=== PATIENT | male | born 1955 | race Caucasian/White ===

== ENCOUNTER 2019-03-23 21:04 | Inpatient (IN) ==
[2019-03-23 21:41] LABS: BASO# 0.04 X1000 (0.0-0.2); BASO% 0.2 % (0.0-0.8); EOS# 0.24 X1000 (0.0-0.7); EOS% 1.1 % (0.0-10.0); HEMATOCRIT 38.4 % (42.0-52.0); HEMOGLOBIN 11.6 g/dL (14.0-18.0); IMM GRAN# 0.21 X1000 (0.0-0.04); IMM GRAN% 0.9 % (0.0-0.5); LYMPH# 0.79 X1000 (1.2-3.4); LYMPH% 3.5 % (20.5-51.1); MCH 28.3 PG (27-31); MCHC 30.2 g/dL (33-37); MCV 93.7 FL (81-99); MONO# 0.92 X1000 (0.11-0.59); MONO% 4.1 % (1.7-9.3); MPV 9.4 FL (7.4-10.4); NEUT# 20.15 X1000 (1.4-6.5); NEUT% 90.2 % (42.2-75.2); PLT 419 X1000 (130-400); WBC 22.35 X1000 (4.8-10.8)
--- NOTE | 2019-03-23 21:42 | Diag Imaging Result Doc PS360 ---
EXAM: CHEST-1 VIEW INDICATION: sob TECHNIQUE: One view COMPARISON: None. FINDINGS: Inspiration is slightly suboptimal. There are vague interstitial and airspace infiltrates bilaterally. Consider pulmonary edema +/- pneumonia. There is more dense infiltrate at the right lung base. There may also be a component of right basilar atelectasis. There is no discrete pleural fluid collection or pneumothorax. The cardiac silhouette is unremarkable. IMPRESSION: Bilateral vague infiltrates seen throughout both lungs, most significant at the right lung base. Electronically signed by Kaushal Reno 03/23/2019 9:40 PM
[2019-03-23 21:46] LABS: INR 1.2; PROTIME 15.3 Seconds (11.0-16.0)
[2019-03-23 21:47] LABS: PTT 38.1 Seconds (22.3-41.8)
[2019-03-23 21:52] LABS: BANDS 1 % (0-1); LYMPHS 2 % (21-51); SEGS 96 % (42-75)
[2019-03-23 22:03] LABS: AGAP 13; ALB/GLOB RATIO 0.9; ALBUMIN 2.8 g/dL (3.5-5.0); ALKALINE PHOSPHATASE 82 U/L (32-122); BUN 14 mg/dL (8-22); CALCIUM 8.9 mg/dL (8.8-10.2); CHLORIDE 99 mmol/L (98-107); CK PROFILE 852 U/L (24-204); COSMO 278; CREATININE 0.7 mg/dL (0.7-1.2); ESTIMATED GFR > 60; GLUCOSE 138 mg/dL (70-104); GOT 98 U/L (10-34); GPT 112 U/L (10-44); MAGNESIUM 1.9 mg/dL (1.5-2.7); SODIUM 138 mmol/L (136-145); TCO2 26 mmol/L (25-35); TOTAL BILIRUBIN 0.19 mg/dL (0.20-1.00); TOTAL PROTEIN 5.8 g/dL (6.3-8.3)
[2019-03-23 22:19] LABS: CK INDEX 2.8 (0.0-2.5)
[2019-03-23] MEDS ORDERED: ZOSYN 3.375 GM in NS 50 ML IV ONE (22:27)
[2019-03-23] MEDS ORDERED: VANCOMYCIN 1 GM/NS 1 GM/250 ML IVPB IV ONE (22:27)
[2019-03-23] MEDS ORDERED: NS 1,000 ML IV ONE (22:27)
[2019-03-24] MEDS ORDERED: ASPIRIN PO ONE (00:02)
[2019-03-24] MEDS ORDERED: ZOFRAN IV PRN (01:30)
[2019-03-24] MEDS ORDERED: VANCOMYCIN IV PER PHARMACY MISC SCH (01:30)
[2019-03-24] MEDS ORDERED: TYLENOL PO PRN (01:30)
--- NOTE | 2019-03-24 03:14 | HISTORY AND PHYSICAL ---
PRIMARY CARE PHYSICIAN: Dr. Enciso. CHIEF COMPLAINT: Fever, shortness of breath, weakness. HISTORY OF PRESENTING ILLNESS: A 63-year-old male with a history of pulmonary embolism, interstitial lung disease and diabetes mellitus type 2, who presented to the emergency department with several days history of worsening weakness. The patient apparently states that he was also running fevers for several days. The patient was also complaining of worsening shortness of breath. The patient did have a pulmonary embolism earlier in the summer and was treated with tPA and apparently he states that his imaging after tPA did not reveal any emboli. Patient was seen in the ED, was in some mild respiratory distress and subsequently he will require admission for further evaluation and management. At time of my examination, patient denied any nausea, vomiting, diarrhea, chest pain, hemoptysis, but complained of weakness, fever and shortness of breath. PAST MEDICAL HISTORY: Includes pulmonary embolism, interstitial lung disease, diabetes mellitus type 2. PAST SURGICAL HISTORY: Back surgery, right shoulder surgery. ALLERGIES: Sulfur. CURRENT MEDICATIONS: Include Eliquis 5 mg p.o. b.i.d., Jardiance 10 mg p.o. daily, glimepiride 1 mg p.o. daily, insulin lispro 5 units as directed, metformin 1000 mg p.o. at bedtime, CellCept 500 mg p.o. b.i.d., prednisone 30 mg p.o. b.i.d., Zanaflex 4 mg p.o. at bedtime. SOCIAL HISTORY: No history of smoking, alcohol or illicit drug use. FAMILY HISTORY: No history of coronary artery disease. REVIEW OF SYSTEMS: Fourteen point review of systems listed as in HPI. Other systems negative. PHYSICAL EXAMINATION: GENERAL: Cooperative, friendly male. He is resting more comfortably now. VITAL SIGNS: Temperature 98.8 degrees, pulse 133, respirations 20, blood pressure 106/65. He is saturating 88%. HEENT: Atraumatic, normocephalic. Extraocular movements intact. PERRLA. NECK: No masses. CHEST: Rhonchi. CARDIOVASCULAR: Regular rate and rhythm. ABDOMEN: Soft. Positive bowel sounds. EXTREMITIES: No edema. NEUROLOGIC: He is awake, alert, oriented x3. GENITOURINARY: No bladder distention. SKIN: Warm. LABORATORIES AND STUDIES: WBC 22.35, hemoglobin is 11.6, hematocrit 38.4, platelets 419,000. Sodium 138, potassium 4.0, chloride 99, CO2 is 26, BUN is 13, creatinine 0.7, glucose is 138. Troponin 0.452, plasma lactate 1.4. Chest x-ray shows bilateral vague infiltrates throughout both lungs. ASSESSMENT: A 63-year-old male with a history of pulmonary embolism status post TPA, interstitial lung disease and diabetes mellitus type 2, who had presented to the emergency department with a several days history of worsening weakness, shortness of breath and fever. He was evaluated in the emergency department. He had imaging done which did raise the possibility of pneumonia. Subsequently, he will require admission for further management. 1. Suspected pneumonia. 2. Interstitial lung disease. 3. Elevated troponin. 4. Pulmonary embolism, on anticoagulation. 5. Diabetes mellitus type 2. PLAN: 1. We will admit patient to [facility]. 2. We will check blood cultures. Start patient on IV antibiotics. 3. We will consult with dental assistant instructor. 4. We will trend troponins and consult Cardiology. 5. We will continue with his anticoagulation. 6. We will monitor blood glucose and put patient on sliding scale insulin regimen. 7. Patient is on Eliquis and that will suffice for DVT prophylaxis. 8. We will continue to follow, and reassess and make further recommendation based on patient's clinical course. cc: Stephen Ruiz MD MTDAbi
[2019-03-24 03:48] LABS: URINE SOURCE CLEAN CATCH
[2019-03-24 03:51] LABS: BILIRUBIN URINE NEGATIVE (NEGATIVE); BLOOD URINE MODERATE (NEGATIVE); COLOR YELLOW; GLUCOSE URINE >1000 mg/dL (NEGATIVE); KETONE URINE NEGATIVE (NEGATIVE); LEUKOCYTES URINE NEGATIVE (NEGATIVE); NITRITE URINE NEGATIVE (NEGATIVE); PH URINE 6.5; PROTEIN URINE 70 mg/dL (NEGATIVE); TURBIDITY URINE CLEAR (CLEAR); UROBILINOGEN URINE NORMAL (NORMAL)
[2019-03-24 03:53] LABS: UR EPITHELIAL CELLS <10 /HPF (<10); URINE BACTERIA NEGATIVE /HPF; URINE RBC <10 /HPF (<10); URINE WBC <10 /HPF (<10)
[2019-03-24 04:22] LABS: SP GRAVITY URINE 1.015
[2019-03-24] MEDS ORDERED: VANCOMYCIN 1 GM/NS 1 GM/250 ML IVPB IV ONE (04:45)
[2019-03-24] MEDS: MYCOSTATIN SUSP PO SCH ×5 (05:54→21:07)
[2019-03-24] MEDS: HUMULIN R SUBQ SCH ×4 (07:00→21:55)
[2019-03-24] MEDS: ZOSYN 3.375 GM in NS 50 ML IV SCH ×3 (07:33→21:07)
[2019-03-24 07:35] LABS: BASO# 0.03 X1000 (0.0-0.2); BASO% 0.1 % (0.0-0.8); EOS# 0.34 X1000 (0.0-0.7); EOS% 1.6 % (0.0-10.0); HEMATOCRIT 35.8 % (42.0-52.0); HEMOGLOBIN 10.7 g/dL (14.0-18.0); IMM GRAN# 0.18 X1000 (0.0-0.04); IMM GRAN% 0.9 % (0.0-0.5); LYMPH# 0.62 X1000 (1.2-3.4); MCH 28.4 PG (27-31); MCHC 29.9 g/dL (33-37); MONO# 0.89 X1000 (0.11-0.59); MONO% 4.3 % (1.7-9.3); MPV 9.9 FL (7.4-10.4); NEUT% 90.1 % (42.2-75.2); PLT 370 X1000 (130-400); RBC 3.77 XMIL (4.7-6.1); RDW 16.1 % (11.5-14.5); WBC 20.86 X1000 (4.8-10.8)
--- NOTE | 2019-03-24 07:48 | Diag Imaging Result Doc PS360 ---
CT ANGIOGRM PULMONARY ARTERIES - 03/23/2019 INDICATION: shortness of breath TECHNIQUE: Axial CT images were obtained after administering intravenous contrast. Coronal MIP images were generated. COMPARISON: None FINDINGS: There is no pulmonary embolus and. Heart size is top normal. There is a small pericardial effusion. There are diffuse shotty mediastinal lymph nodes but no focal lymphadenopathy. Upper abdominal images are unremarkable. There are extensive fibrotic changes bilaterally, worst in the posterior costophrenic angles bilaterally. There are some trace hazy infiltrates in the upper lobes bilaterally as well. There are moderate degenerative changes of the spine. No acute or suspicious bony lesion. IMPRESSION: Negative for pulmonary embolism. Advanced pulmonary fibrosis. Hazy interstitial infiltrates mainly in the upper lobes are nonspecific, this could represent pneumonia or inflammatory changes relating to the fibrosis. This exam was performed using automated exposure control, adjustment of mA or kV according to patient size, and/or use of iterative reconstruction technique Electronically signed by Sixto Pacheco 03/24/2019 7:45 AM
[2019-03-24 07:49] LABS: AGAP 13; BUN 12 mg/dL (8-22); CALCIUM 8.4 mg/dL (8.8-10.2); CHLORIDE 100 mmol/L (98-107); COSMO 275; CREATININE 0.6 mg/dL (0.7-1.2); ESTIMATED GFR > 60; GLUCOSE 99 mg/dL (70-104); MAGNESIUM 1.9 mg/dL (1.5-2.7); POTASSIUM 3.8 mmol/L (3.5-5.1); SODIUM 138 mmol/L (136-145); TCO2 25 mmol/L (25-35)
--- NOTE | 2019-03-24 07:51 | EKG Report ---
Test Performed on : 03/23/2019 9:37:09 PM Test Reason : ED. NO EKG ORDER FOR MUSE Blood Pressure : / mmHG Vent. Rate : 111 BPM Atrial Rate : 111 BPM P-R Int : 182 ms QRS Dur : 078 ms QT Int : 320 ms P-R-T Axes : 044 -09 022 degrees QTc Int : 435 ms Sinus tachycardia. Possible Left atrial enlargement Possible Inferior infarct , age undetermined Cannot rule out Anterior infarct , age undetermined Abnormal ECG No previous ECGs available Unconfirmed Result
--- NOTE | 2019-03-24 07:51 | EKG Report ---
Test Performed on : 03/24/2019 00:38:39 AM Test Reason : ED. NO EKG ORDER FOR MUSE Blood Pressure : / mmHG Vent. Rate : 096 BPM Atrial Rate : 096 BPM P-R Int : 200 ms QRS Dur : 082 ms QT Int : 364 ms P-R-T Axes : 051 -12 024 degrees QTc Int : 459 ms Normal sinus rhythm. Low voltage QRS Borderline ECG When compared with ECG of 23-MAR-2019 21:37, (Unconfirmed) No significant change was found Unconfirmed Result
--- NOTE | 2019-03-24 09:38 | EKG Report ---
Test Performed on : 03/24/2019 09:08:29 AM Test Reason : chest pain Blood Pressure : / mmHG Vent. Rate : 096 BPM Atrial Rate : 096 BPM P-R Int : 188 ms QRS Dur : 084 ms QT Int : 356 ms P-R-T Axes : 045 -15 018 degrees QTc Int : 449 ms Normal sinus rhythm. Normal ECG When compared with ECG of 24-MAR-2019 00:38, (Unconfirmed) No significant change was found Confirmed by Marisol MARTINEZ, Scout ([id number]) on 03/25/2019 11:35:12 AM
[2019-03-24] MEDS ORDERED: GLUCOPHAGE PO SCH ×2 (10:15→21:00)
[2019-03-24] MEDS ORDERED: MYCOSTATIN SUSP PO SCH (10:15)
[2019-03-24] MEDS ORDERED: GLIMEPIRIDE 1 MG PO SCH (10:15)
[2019-03-24] MEDS ORDERED: PREDNISONE PO SCH (10:15)
[2019-03-24] MEDS ORDERED: DIFLUCAN PO SCH (10:15)
[2019-03-24 10:43] LABS: CK INDEX 3.2 (0.0-2.5); CK-MB 23.37 ng/mL (0.0-5.0)
[2019-03-24] MEDS ORDERED: SOLU-MEDROL IV SCH (11:15)
[2019-03-24] MEDS: ELIQUIS PO SCH ×2 (11:22→21:07)
[2019-03-24] MEDS: NON-FORMULARY MED (Empagliflozin [Jardiance] 10 MG) PO SCH (11:22)
[2019-03-24] MEDS: DIFLUCAN 100 MG/NS 100 MG/50 ML IVPB IV SCH (13:02)
[2019-03-24] MEDS: VANCOMYCIN 1,900 MG in NS 500 ML IV SCH (14:37)
--- NOTE | 2019-03-24 15:16 | ECHO REPORT ---
ORDER DATE: 03/24/2019 INTERPRETING PHYSICIAN: Dr. Steve Stephenson ECHOCARDIOGRAPHIC MEASUREMENTS: 1. Interventricular septum: 1.0 cm. 2. Posterior wall: 0.8 cm. 3. Diastolic diameter: 5.1 cm. 4. Left atrium: 3.2 cm. 5. Aortic root: 4.5 cm. SUMMARY OF THE 2-DIMENSIONAL IMAGIN. Ascending aorta was mildly dilated. 2. Aortic valve leaflets were trileaflet. 3. Mitral valve was normal. 4. Tricuspid valve was normal. 5. Pulmonic valve was normal. 6. Normal left ventricular cavity size. Estimated ejection fraction of 60 to 65 percent. There is no aortic stenosis or regurgitation. 7. There is mild mitral regurgitation. 8. Mild tricuspid regurgitation. Peak velocity across the tricuspid valve was 2.2 m/sec 9. Trace posterior echo-free space suggestive of small pericardial effusion noted. There is no obvious sign of tamponade. There is no obvious intracardiac mass or thrombus seen. cc: MD Stephen Ramirez MD
[2019-03-24] MEDS ORDERED: CLINIMIX E 4.25%-5% SOLUTION 1,000 ML IV SCH (15:45)
[2019-03-24] MEDS: SOLU-MEDROL IV SCH (21:07)
[2019-03-25] MEDS: ZOSYN 3.375 GM in NS 50 ML IV SCH ×4 (01:03→22:24)
[2019-03-25] MEDS: VANCOMYCIN 1,900 MG in NS 500 ML IV SCH ×2 (01:03→13:31)
[2019-03-25] MEDS: SOLU-MEDROL IV SCH ×3 (04:07→19:47)
[2019-03-25] MEDS: HUMULIN R SUBQ SCH ×4 (06:14→20:37)
--- NOTE | 2019-03-25 06:43 | EKG Report ---
Test Performed on : 03/25/2019 06:02:06 AM Test Reason : pericarditis/elevated troponins Blood Pressure : / mmHG Vent. Rate : 086 BPM Atrial Rate : 086 BPM P-R Int : 248 ms QRS Dur : 084 ms QT Int : 390 ms P-R-T Axes : 047 -04 029 degrees QTc Int : 466 ms Sinus rhythm. with 1st degree AV block. Low voltage QRS Borderline ECG When compared with ECG of 24-MAR-2019 09:08, (Unconfirmed) SD interval has increased Confirmed by Marisol MARTINEZ, Scout ([id number]) on 03/25/2019 11:40:21 AM
[2019-03-25 06:45] LABS: AGAP 10; BUN 16 mg/dL (8-22); CALCIUM 8.9 mg/dL (8.8-10.2); CHLORIDE 102 mmol/L (98-107); CK INDEX 3.4 (0.0-2.5); CK-MB 21.86 ng/mL (0.0-5.0); COSMO 283; CREATININE 0.6 mg/dL (0.7-1.2); ESTIMATED GFR > 60; GLUCOSE 170 mg/dL (70-104); POTASSIUM 4.6 mmol/L (3.5-5.1); SODIUM 139 mmol/L (136-145); TCO2 27 mmol/L (25-35)
[2019-03-25 06:46] LABS: BASO# 0.01 X1000 (0.0-0.2); HEMOGLOBIN 11.2 g/dL (14.0-18.0); IMM GRAN# 0.18 X1000 (0.0-0.04); IMM GRAN% 0.9 % (0.0-0.5); LYMPH# 0.59 X1000 (1.2-3.4); LYMPH% 2.9 % (20.5-51.1); MCH 27.9 PG (27-31); MCHC 29.5 g/dL (33-37); MCV 94.8 FL (81-99); MONO# 0.57 X1000 (0.11-0.59); MONO% 2.8 % (1.7-9.3); MPV 9.6 FL (7.4-10.4); NEUT# 18.83 X1000 (1.4-6.5); NEUT% 93.4 % (42.2-75.2); PLT 431 X1000 (130-400); RBC 4.01 XMIL (4.7-6.1); RDW 15.8 % (11.5-14.5); WBC 20.18 X1000 (4.8-10.8)
[2019-03-25 07:08] LABS: ANISOCYTOSIS 1+; BANDS 2 % (0-1); LYMPHS 3 % (21-51); MONO 2 % (1-9); SEGS 92 % (42-75)
--- NOTE | 2019-03-25 07:29 | CONSULTATION ---
DATE OF CONSULTATION: 03/24/2019 HISTORY OF PRESENT ILLNESS: Mr. Grijalva is 63 years old and he reports diffuse weakness. History from the patient is that he did not notice any significant weakness until about 6 months ago. He reports developing sudden shortness of breath and eventual diagnosis of pulmonary embolus. He had extensive workup and believes that autoimmune disease was the final diagnosis. He reports being weak all over without focal features. He had trouble raising his arms and legs. He did not fall. There was no loss of bowel or bladder control. Initially, there was not dysarthria or trouble chewing and swallowing. There was no ptosis, facial asymmetry, diplopia. He reports he was treated with prednisone 60 mg daily and strength improved remarkably. Soon, blood sugar was elevated. He reports CellCept was added and he almost immediately began to notice nausea, shortness of breath, increased weakness, loss of appetite and weight loss. Prednisone dose was tapered to 5 mg daily while he was taking CellCept. CellCept was stopped about a month ago and prednisone was continued 5 mg daily, by his report. He continued to feel weak, mostly generalized weakness. He had trouble getting up steps, trouble getting up from a chair, trouble getting up off the commode, trouble using his arms at shoulder height or higher. He began to notice occasional sharp pain in the jaw muscles associated with chewing. He does not report benjamin dysarthria or dysphagia. There was still no facial motility deficit. He presented to the hospital today with increasing weakness and shortness of breath. He reports receiving a dose of prednisone 60 mg several hours ago and he believes he can already tell significant improvement in strength following that dose. Prior to this, he would have occasional numbness and tingling in the feet. He reports being "borderline" for diabetes mellitus prior to recent events. While taking prednisone, blood sugar became elevated. SOCIAL HISTORY: He does not smoke cigarettes. He denies ethanol use. He denies illicit drug use. FAMILY HISTORY: He does not know any family history of autoimmune problem or neuromuscular disease. There is family history of diabetes mellitus and peripheral neuropathy. LABORATORY DATA: Lab work here shows WBC count 22,000 and then 20,000. CK was 852 and then 735. Sedimentation rate was 80 and then 83. He has been afebrile here. REVIEW OF SYSTEMS: He reports purposeful weight loss with dieting from 240 pounds down to 220 pounds over a month or 2 approximately a year ago. Weight continued to decline very slowly over the next several months, eventually as low as 182 pounds. During that time, he had improved strength and was able to participate with rehab, he reports his weight increased to 200 pounds. In the last month or so, he reports weight loss down to 185 pounds. He weighed 191 pounds on presentation today. PHYSICAL EXAMINATION: On exam, Mr. Grijalva is awake, alert, attentive, appropriate. Speech is not dysarthric. Language function is intact. Memory is good. Head and neck are unremarkable. Visual perera are full. Extraocular movements are full. There is no ptosis. Facial motility is good bilaterally. Gag is intact. Tongue is midline. He has some discomfort with aggressive motor testing around the shoulder girdles bilaterally (he reports rotator cuff tear on the left and prior rotator cuff surgery on the right). I can overcome the deltoid, grading 4/5 bilaterally. He has good carbon brush maker power bilaterally and good strength in the wrist extensors bilaterally. I can overcome the iliopsoas grading 4+/5 bilaterally. I can barely overcome the quadriceps at 4+/5 bilaterally. He has good power in the anterior tibialis and gastrocnemius bilaterally. I do not see obvious atrophy or loss of muscle bulk. There is no fasciculation. Reflexes are 2+ at the right ankle, 1+ at the left ankle, 2+ at the knees, 1+ symmetrically at the wrists. Plantar response is flexor bilaterally. He reports good pinprick and light touch appreciation over the ankles and palms symmetrically. Proprioception is good at the great toe MTP joint bilaterally. He did well on [id number] testing bilaterally. I did not test his gait. IMPRESSION AND PLAN: Diffuse weakness, mostly proximal. His recent history and findings suggest myopathy more than peripheral neuropathy. Myasthenia gravis is not excluded but he does not report significant fatiguing. He reports diagnosis of autoimmune disease and he may have a broad autoimmune problem with neuromuscular effect. I agree with rheumatology evaluation. He has had some workup at [facility] and I do not have those reports. From neurology standpoint, we might consider EMG when practical, not urgent. He reports good response to steroids. I hope he will tolerate adequate steroid dose to maintain strength until more definite diagnosis and management can be implemented. I do not think he has had respiratory distress except associated with pulmonary embolus and I don't see evidence of neuromuscular ventilatory problem. I do not think we have to do anything more urgently from neuromuscular standpoint right now. Thanks for asking Neurology to see Mr. Grijalva. cc: MD JASPREET Tiwari III
--- NOTE | 2019-03-25 07:50 | CARDIOLOGY CONSULTATION ---
DATE: 03/24/2019 CONSULTATION REQUESTED BY: The hospitalist service. REASON FOR THE CONSULTATION: The patient with elevated troponins, question of myocardial infarction. CHIEF COMPLAINT: Is fever, dyspnea, sore throat, and weakness. HISTORY: Mr. Grijalva is a 63-year-old male who presented to the emergency room the day before at 9:30 p.m. with complaints of feeling increasingly weak. He also noted fever associated with dyspnea and difficulty swallowing. His throat was very sore. He could barely move. He was hurting all over his body. In fact, when I came to examine him, he could not turn to the side because he was in diffuse musculoskeletal pain. The patient denies having any specific chest pain and he denies having any prior history of heart disease. His troponin levels of course had to be checked as part of the automatic battery of tests. This was not motivated by anything that the patient said or was seen on the initial exam. This is just automatic reflexive checking of enzymes. First enzyme is 0.452, seconds one is 0.435, next one is 0.439, the last one is 0.422. His CPKs initially 852, next one 735. They did not check a CPK with the 2nd set of troponins. The EKG really does not show any acute ST changes. In fact, it could pass as a normal EKG. A chest x-ray done initially shows bilateral vague infiltrates seen throughout both lungs, most significantly at the right lung base. A proBNP level has not been obtained. A pulmonary arteriogram was done that shows no pulmonary embolism. There is advanced pulmonary fibrosis with hazy interstitial infiltrates mainly in the upper lobes that are nonspecific. The patient past history is very complicated. He was recently diagnosed with a saddle pulmonary embolism, and taken to [facility] where he was managed. At some point, they found that he had significant interstitial lung disease and they identified an autoimmune disorder for which they started him on CellCept and after he started the medication, he feels like he went downhill. He has also been diagnosed with diabetes mellitus type 2. SURGICAL HISTORY: Positive for back surgery and shoulder surgery. 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 He is single. He is not a smoker nor a drinker. FAMILY HISTORY: Noncontributory. ALLERGIES TO: Latex and sulfa drugs. HOME MEDICATIONS: 1. Apixaban 5 mg twice a day. 2. Jardiance 10 mg daily. 3. Diflucan 100 mg daily. 4. Glimepiride 1 mg as directed. 5. Metformin 500 in the morning and 1000 nightly. 6. Nystatin tablet 4 times a day. 7. Prednisone 10 mg as directed. REVIEW OF SYSTEMS: Besides what I have reported is really noncontributory. There is no history in this patient of any heart disease. Of note, on the CT angiogram of the lungs, they identified a small pericardial effusion and they have done a followup echocardiogram to look into that shows a small pericardial effusion. There is no tamponade. His ejection fraction by echocardiography is normally and his valvular structures are normal. PHYSICAL EXAMINATION: Vital signs: Blood pressure 111/68, temperature 98.3 degrees, pulse is 91, respirations 16. General: Patient is awake, alert, in no distress. He appears to be acutely and chronically ill both. HEENT: Some thrush in the mouth. Chest: Crepitans at both bases like "crackles". Heart: Sounds are regular rhythmic. I do not hear a rub, gallop or murmur. Abdomen: Nontender. Extremities: Showed diffuse muscle weakness. No rashes are noted. Pulses are present. Neurological: He has just diffuse muscular weakness. He follows commands. He is awake. Cranial nerves appeared to be grossly normal. IMPRESSION: 1. Patient who presents basically with fever and an abnormal chest x-ray and abnormal CT suggesting acute and possibly chronic interstitial lung disease. 2. Elevated troponin levels, which is completely nonspecific. I suspect that this is related to the pericardial effusion noted. If this patient has connective tissue disease, pericarditis is not uncommon and that may explain the rise on his cardiac markers. EKG and echo do not support myocardial ischemia. 3. He has thrush, oral candidiasis. 4. Has a recent history of saddle pulmonary embolism in September 2018. RECOMMENDATION: At this point from my specialty viewpoint, I do not advise any intervention. We will monitor his troponins for a day or 2. This patient really needs to be in the hands of a specialist in autoimmune diseases. Cardiac-ramirez, I do not recommend any additional testing for the time being. Please feel free to call me and discuss the case with me at your leisure. cc: Mike Wing MD MTDD
[2019-03-25] MEDS: ELIQUIS PO SCH ×2 (09:13→20:13)
[2019-03-25] MEDS: NON-FORMULARY MED (Empagliflozin [Jardiance] 10 MG) PO SCH (09:13)
[2019-03-25] MEDS: MYCOSTATIN SUSP PO SCH ×4 (09:13→20:13)
[2019-03-25] MEDS ORDERED: ZOSYN ONE (11:28)
[2019-03-25] MEDS: DIFLUCAN 100 MG/NS 100 MG/50 ML IVPB IV SCH (11:53)
[2019-03-25] MEDS: CLINIMIX E 4.25%-5% SOLUTION 1,000 ML IV SCH (13:31)
--- NOTE | 2019-03-25 21:39 | PROGRESS NOTE ---
DATE: 03/25/2019 Mr. Grijalva reports significant continued improvement in strength overnight. He feels well enough to take care of himself at home, by his report today. He does not have any new complaints. CK is down to 637 today. Blood sugars range 160s-200s. ANABEL was negative. Rheumatoid factor was at the upper limit of normal. He reports outpatient Pulmonology and Rheumatology appointments had been arranged at [facility] for the coming months. If his clinical deficit can be managed adequately with steroids, and if he can tolerate that steroid dose, I will defer further recommendations to Rheumatology. If he needs to be seen locally for further neurology evaluation, I will be glad to see him inpatient or outpatient. Thanks for asking Neurology to see Mr. Grijalva. cc: MD JASPREET Tiwari III
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
[2019-03-26] MEDS: VANCOMYCIN 1,900 MG in NS 500 ML IV SCH ×3 (03:44→17:18)
[2019-03-26] MEDS: CLINIMIX E 4.25%-5% SOLUTION 1,000 ML IV SCH ×3 (03:45→19:56)
[2019-03-26] MEDS: SOLU-MEDROL IV SCH ×3 (03:58→20:00)
[2019-03-26] MEDS: ZOSYN 3.375 GM in NS 50 ML IV SCH ×4 (05:46→22:21)
[2019-03-26] MEDS: HUMULIN R SUBQ SCH ×4 (06:26→21:15)
[2019-03-26 06:33] LABS: HEMOGLOBIN A1C 5.8 % (4.8-6.0)
[2019-03-26] MEDS ORDERED: ZOSYN ONE (08:09)
[2019-03-26] MEDS: MYCOSTATIN SUSP PO SCH ×4 (08:57→20:01)
[2019-03-26] MEDS: ELIQUIS PO SCH ×2 (08:58→20:00)
[2019-03-26] MEDS: NON-FORMULARY MED (Empagliflozin [Jardiance] 10 MG) PO SCH (08:59)
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
[2019-03-26] MEDS: DIFLUCAN 100 MG/NS 100 MG/50 ML IVPB IV SCH (13:08)
--- NOTE | 2019-03-26 17:56 | EKG Report ---
Test Performed on : 03/26/2019 06:44:45 AM Test Reason : pericarditis/elevated troponins Blood Pressure : / mmHG Vent. Rate : 084 BPM Atrial Rate : 110 BPM P-R Int : 000 ms QRS Dur : 086 ms QT Int : 374 ms P-R-T Axes : 000 -05 001 degrees QTc Int : 441 ms Atrial fibrillation. Abnormal ECG When compared with ECG of 25-MAR-2019 06:02, Atrial fibrillation. has replaced Sinus rhythm. Confirmed by Marisol MARTINEZ, Scout ([id number]) on 03/28/2019 8:25:50 AM
[2019-03-27] MEDS: SOLU-MEDROL IV SCH ×3 (03:07→21:45)
[2019-03-27] MEDS: VANCOMYCIN 1,900 MG in NS 500 ML IV SCH ×2 (03:07→16:27)
[2019-03-27] MEDS: ZOSYN 3.375 GM in NS 50 ML IV SCH ×4 (05:10→22:06)
[2019-03-27] MEDS: HUMULIN R SUBQ SCH ×4 (06:21→21:06)
[2019-03-27] MEDS: MYCOSTATIN SUSP PO SCH ×5 (08:47→21:45)
[2019-03-27] MEDS: ELIQUIS PO SCH ×2 (08:47→21:45)
[2019-03-27] MEDS: NON-FORMULARY MED (Empagliflozin [Jardiance] 10 MG) PO SCH (08:47)
[2019-03-27] MEDS: CLINIMIX E 4.25%-5% SOLUTION 1,000 ML IV SCH (08:47)
[2019-03-27] MEDS: DIFLUCAN 100 MG/NS 100 MG/50 ML IVPB IV SCH (11:42)
--- NOTE | 2019-03-27 17:56 | PROGRESS NOTE ---
DATE: 03/27/2019 SUBJECTIVE: Mr. Grijalva does feel stronger. His arms are stronger. His legs are stronger. He would like to pursue going to rehab. He is concerned about going home. Would like to build up some more strength. OBJECTIVE: Vital signs: Temperature 97.2 degrees, pulse 78, respirations 16, blood pressure 133/84. HEENT: Pupils are equal and round. Lungs: Clear in all lung perera. Cardiovascular: Regular rhythm and rate without murmur or S3. Abdomen: Soft. Skin: Warm and dry. Urine output was 5,500 mL. ASSESSMENT AND PLAN: 1. Massive saddle pulmonary emboli back in September of 2018, treated with tPA at [facility], transferred to [facility] where he had a stent placed at [facility]. 2. Interstitial lung disease. 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 Since that time he has been very weak. We backed down on the CellCept. He seems to be doing better and he is gaining some strength. Hopefully, he can go to rehab soon. 3. 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 4. Diabetes mellitus type 2. Sugars appear under good control. 5. I review his lab. Blood sugars 278, 223, 282, and 198. We have sent off for connective tissue panel and anti-Juliane-1 antibody. His blood cultures are with no growth since 03/23. cc: Dario Kraus MD
[2019-03-28] MEDS: SOLU-MEDROL IV SCH ×3 (04:21→21:07)
[2019-03-28] MEDS: VANCOMYCIN 1,900 MG in NS 500 ML IV SCH ×2 (04:22→17:19)
[2019-03-28] MEDS: HUMULIN R SUBQ SCH ×4 (06:32→21:07)
[2019-03-28] MEDS: ZOSYN 3.375 GM in NS 50 ML IV SCH ×3 (06:33→16:37)
--- NOTE | 2019-03-28 06:34 | Diag Imaging Result Doc PS360 ---
EXAM: CHEST-1 VIEW HISTORY: SOB TECHNIQUE: Single view COMPARISON: 03/23/2019 FINDINGS: Poor inspiratory effort. The heart is mildly enlarged. There is vascular distention. There are increased interstitial markings similar to the prior exam. Tiny left effusion. IMPRESSION: Stable chest Electronically signed by Clement Crystal 03/28/2019 6:32 AM
[2019-03-28] MEDS: MYCOSTATIN SUSP PO SCH ×4 (09:04→21:06)
[2019-03-28] MEDS: ELIQUIS PO SCH ×2 (09:05→21:06)
[2019-03-28] MEDS: CLINIMIX E 4.25%-5% SOLUTION 1,000 ML IV SCH ×2 (09:05→11:38)
[2019-03-28] MEDS: NON-FORMULARY MED (Empagliflozin [Jardiance] 10 MG) PO SCH (09:05)
[2019-03-28] MEDS: DIFLUCAN 100 MG/NS 100 MG/50 ML IVPB IV SCH (11:29)
[2019-03-28] MEDS: CALMOSEPTINE OINTMENT TOP PRN (12:45)
--- NOTE | 2019-03-28 17:56 | PROGRESS NOTE ---
DATE: 03/28/2019 SUBJECTIVE: Mr. Grijalva is stronger, he feels a little better. We discussed with Dr. Duffy about getting a muscle biopsy. It does not look like we are going to be able to schedule that, but he will go to rehab tomorrow, and schedule the muscle biopsy of the proximal thigh in a couple of weeks. OBJECTIVE: Vital Signs: Temperature 98.5 degrees, pulse 84, respirations 19, and blood pressure 119/74. HEENT: Pupils are equal and round. Lungs: Clear in all lung perera. Cardiovascular: Regular rhythm and rate without murmur or S3. Abdomen: Soft. Skin: Warm and dry. LABORATORY AND DIAGNOSTIC: Urine output is 6300 mL. Blood sugar 198, 149, and 181. We did another chest x-ray this morning with stable chest and poor inspiratory effort, tiny left effusion. There is vascular distention and increased interstitial markings, similar to prior exam. ASSESSMENT AND PLAN: 1. History of massive saddle pulmonary emboli back in September of 2018, treated with tPA in [facility] and sent to [facility] where I believe he got a stent. He is doing better from that issue. 2. Interstitial lung disease. I suspect he has got polymyositis. He was put on CellCept and started feeling poor. We suspect he was taking too much of the CellCept. I think he misunderstood the instructions, and so that has been reduced. 3. Autoimmune disease. We suspect polymyositis and interstitial fibrosis of the lungs. Dr. Duffy has evaluated, and would like to get a muscle biopsy. We will see if we can set that up as an outpatient Dr. Rafael Elias was consulted. 4. Diabetes mellitus type 2. Sugars appear under good control. 5. Review of his orders: He is on Eliquis 5 mg b.i.d. Clinimix: He was getting 70 mL an hour. Fluconazole 100 mg IV daily. Methylprednisone. He is on 80 mg IV q.8. He is getting vancomycin and piperacillin. I think we can stop the vancomycin and piperacillin. We will get him ready to go to rehab tomorrow. cc: Dario Kraus MD
[2019-03-29] MEDS: CLINIMIX E 4.25%-5% SOLUTION 1,000 ML IV SCH (01:36)
[2019-03-29] MEDS: CALMOSEPTINE OINTMENT TOP PRN (02:20)
[2019-03-29] MEDS: SOLU-MEDROL IV SCH ×2 (04:43→12:24)
[2019-03-29] MEDS: HUMULIN R SUBQ SCH ×2 (06:58→12:25)
[2019-03-29] MEDS: ELIQUIS PO SCH (08:06)
[2019-03-29] MEDS: MYCOSTATIN SUSP PO SCH ×2 (08:06→12:24)
[2019-03-29] MEDS: NON-FORMULARY MED (Empagliflozin [Jardiance] 10 MG) PO SCH (08:07)
--- NOTE | 2019-03-29 09:11 | DISCHARGE SUMMARY ---
ADMISSION DATE: 03/24/2019 DISCHARGE DATE: Tentative discharge 03/29/2019 HISTORY AND HOSPITAL COURSE: This is a 63-year-old who was admitted on 03/24/2019. His doctor is Dr. Collin Enciso. This is a 63-year-old who came in with fever, shortness of breath and weakness. He has a history of pulmonary embolism, a large saddle embolism requiring tPA and I think he went to [facility] for a stent, interstitial lung disease, diabetes mellitus type 2, presented to the emergency department with a several-day history of worsening weakness. The patient states he was also running fevers for several days and complained of shortness of breath. He had a pulmonary embolism in the summer of this year, treated with tPA and sent to [facility] where he apparently got a stent. Imaging after tPA did not reveal any emboli. The patient was apparently diagnosed after with his interstitial fibrosis with polymyositis and started on CellCept. He reported that when he started taking CellCept, he may have misunderstood the dose, but he started getting weaker. He was very aggressive with physical therapy but noticed significant decline and so presented to the hospital. Admission diagnosis was suspected pneumonia, interstitial lung disease. He did have an elevated troponin, recent pulmonary embolism with anticoagulation. The patient was started on empiric antibiotics. His chest x-ray on 03/23/2019, bilateral vague infiltrates seen throughout both lungs, most significant in the right lung base. He had an echocardiogram done on 03/24/2019. Ascending aorta was a mildly dilated. Mitral valve was normal. Tricuspid valve was normal. Pulmonic valve normal. Normal left ventricular cavity size, ejection fraction of 60 to 65%. There is mild mitral regurgitation, mild tricuspid regurgitation. Cardiology was asked to evaluate, Dr. Wing. He had abnormal chest x-ray, abnormal CT suggesting possible chronic interstitial lung disease, elevated troponin levels which were nonspecific and may be related to a little bit of pericardial effusion noted. The patient has apparently presumed polymyositis. He has never had a muscle biopsy and he had some oral candidiasis and was aware of his recent pulmonary embolism in September of this year. The patient showed steady improvement and Dr. Qiu, it security manager, was consulted. He felt like he could have possible pneumonia so he was continued on to get some IV fluids. Gave him some Clinimix for nutrition 70 mL an hour but he was eating well and he gained strength in his arms and legs and he was on methylprednisone 80 mg IV q.8. He was taking empagliflozin 10 mg a day and of course he was on Eliquis 5 mg p.o. b.i.d. for his pulmonary thromboemboli. He wanted to go to rehab and tentatively is hoping to go to rehab on 03/29/2019. DISCHARGE MEDICATIONS: We will we will discharge him with: 1. Eliquis 5 mg b.i.d.. 2. Jardiance which empagliflozin 10 mg a day. 3. Diflucan 100 mg p.o. daily for another 7 days. 4. Amaryl 1 mg I think once a day. 5. Glucophage 1000 mg at bedtime. I think he took Glucophage extended release 500 mg q.a.m. 6. Prednisone 10 mg daily. 7. I think he was taking nystatin 4 times a day as well. He already has oxygen and we will get him set to go home. FOLLOWUP: Note: I will try to get him set up for a muscle biopsy with Dr. Rafael Elias and that will have to be done as an outpatient, so he will have an appointment to see Dr. Rafael Elias in a couple weeks and get his muscle biopsy to try and confirm polymyositis under Tati's direction. cc: Dario Kraus MD
[2019-03-29 12:00] VITALS: BP 118/79
[2019-03-29] MEDS: DIFLUCAN 100 MG/NS 100 MG/50 ML IVPB IV SCH ×2 (12:24→12:32)
--- NOTE | 2019-03-29 13:08 | DISCHARGE SUMMARY ---
ADMISSION DATE: 03/24/2019 DISCHARGE DATE: 03/29/2019 ADDENDUM: The patient is doing well. Plan is for discharge today to rehab. He will be discharged on high dose steroids. Per Dr. Duffy, he tried to get a muscle biopsy. He has been on Eliquis because of a PE so I do not think we can get that done right now. He will have to be off Eliquis for a couple of days in fact. In any case, he is stable and ready to go. The only adjustments I made was Diflucan was for 7 days, that is not an adjustment actually, and then prednisone will be 60 mg daily. Discharge condition is stable. Please addend this to Dr. Kraus's discharge from yesterday. He will need close follow up with Dr. Duffy as well. Also, follow up with Dr. Elias for muscle biopsy. cc: Isaias Orourke MD
[2019-03-30 14:21] LABS: RIBOSOME P AB SEE COMMENTS
--- NOTE | 2019-04-05 04:07 | PROVIDER DOCUMENTATION ---
This chart was entered by Lia Kohler Scribe, acting as scribe for Frederick Ellis MD. HPI-General Adult - General Chief Complaint: SEPSIS ALERT - D Stated Complaint: WEAKNESS/FEVER/BLOOD CLOT Time Seen by Provider: 03/23/19 22:10 Source: patient Allergies/Adverse Reactions: Patient Allergies Allergy/AdvReac Type Severity Reaction Status Date / Time latex AdvReac Unknown Verified 03/24/19 00:08 Sulfa (Sulfonamide AdvReac Unknown Verified 03/24/19 00:08 Antibiotics) Home Medications: Home Medication List Medication Instructions Recorded Confirmed Last Taken Type Apixaban [Eliquis] 5 mg PO BID 11/01/18 03/24/19 03/23/19 09:00 History Empagliflozin [Jardiance] 10 mg PO DAILY 11/19/18 03/24/19 03/23/19 09:00 History Glimepiride [Amaryl] 1 mg PO DIRECTED 12/21/18 03/24/19 03/23/19 09:00 History Metformin E.r. [Glucophage Xr] 500 mg PO QAM 12/21/18 03/24/19 03/23/19 09:00 History Metformin [Glucophage] 1,000 mg PO HS 12/21/18 03/24/19 03/23/19 21:00 History Fluconazole [Diflucan] 100 mg PO QAM 03/24/19 03/24/19 Unknown History Nystatin 1 ea PO 4XDAY 03/24/19 03/24/19 03/23/19 09:00 History Prednisone 60 mg PO DAILY #90 tab 03/29/19 Unknown Rx - History of Present Illness -Gen Adult Nature of Presenting Problems: pt is a 63 yr old male presenting with 6day complaint of fever(max 103.1), fatigue, weakness, loss of appetite. pt admits hx of saddle PE and interstitial lung disease. pt reports he was seen by PCP 3 days ago and dx as thrush. pt denies chest pain Location of Pain/Injury: reports: generalized Pain Radiation: reports: no radiation Quality of Pain: reports: none Severity: reports: moderate Onset/Duration: reports: 6 days ago Timing: reports: getting worse Context/Activities at Onset: reports: light activity Modifying Factors: improves with: analgesics (tylenol/motrin relieves fever) Associated Symptoms: reports: fatigue, fever/chills, loss of appetite, weakness. denies: back/neck pain, chest pain, constipation, diarrhea, dizziness, genito urinary problems, nausea, shortness of breath, vomiting Similar Symptoms Previously?: Yes Recently seen or treated by another doctor?: Yes Review of Systems - Adult - REVIEW OF SYSTEMS - ADULT Constitutional: reports: chills, fever, fatique Eyes: reports: no symptoms reported Ears, Nose, Mouth & Throat: denies: ear pain, sinus problem, throat pain Cardiovascular: denies: chest pain, palpitations, syncope Respiratory: denies: cough, dyspnea on exertion, shortness of breath Gastrointestinal: reports: poor appetite. denies: abdominal pain, nausea, vomiting Genitourinary: denies: dysuria, frequency, flank pain Musculoskeletal: reports: muscle aches, muscle weakness. denies: back pain Integumentary: denies: itching, rash, skin sores/ulcer Neurological: denies: dizziness/vertigo, headache/migraines, numbness, syncope Psychiatric: reports: no symptoms reported Endocrine: reports: no symptoms reported Hematologic/Lymphatic: reports: no symptoms reported Allergic/Immunologic: reports: no symptoms reported All Other Systems: Reviewed and Negative Past History - Adult - PAST MEDICAL HISTORY-ADULT Review of Records: reports: Old Records Reviewed, Nursing Assessment Review, Medications Reviewed, Social history reviewed & non-contributory. Major Childhood Illnesses: reports: denies history Cardiovascular: reports: denies history Respiratory: reports: denies history Gastrointestinal: reports: denies history Obstetrical/Gynecological: reports: denies history Genitourinary: reports: denies history Musculoskeletal: reports: denies history Neurological: reports: denies history Endocrine/Immune: reports: denies history Other Conditions: reports: denies history - IMMUNIZATION STATUS Childhood Immunizations: See Nurse Assessment Flu Vaccine: See Nurse Assessment - FAMILY HISTORY Family History: reviewed, not pertinent - SOCIAL HISTORY Smoking: denies, non-smoker Substance Use: denies Living Situation: family Physical Exam-General - PHYSICAL EXAM-ADULT Initial Vital Signs Reviewed: Yes - CONSTITUTIONAL General Appearance: alert, no apparent distress - EYES Eyes: PERRL/EOMI - HEAD, EARS, NOSE, MOUTH & THROAT HENMT: normocephalic/atraumatic, moist mucous membranes - NECK Neck: non-tender, full range of motion, supple, normal inspection - RESPIRATORY Respiratory: chest non-tender, lungs clear, normal breath sounds, no respiratory distress, no accessory muscle use - CARDIOVASCULAR Cardiovascular: normal peripheral pulses, tachycardia - GASTROINTESTINAL (ABDOMEN) Abdominal Exam: normal bowel sounds, non tender, soft - LYMPHATIC Lymphatic: no adenopathy - MUSCULOSKELETAL Back Exam: normal inspection Extremity: normal range of motion, non-tender, normal inspection - SKIN Integumentary: normal turgor, warm/dry, other (flushed face) - NEUROLOGIC Neurologic: grossly normal - PSYCHIATRIC Psych/Mental Status: normal mood/affect, normal thought content, normal thought process, oriented x 3 Progress - PLAN OF CARE/RESULTS Progress/Plan/Lab Results: Vital Signs - 8 hr 03/23/19 21:10 Temperature 98.8 F Pulse Rate 133 H Respiratory Rate 20 Blood Pressure 106/65 O2 Sat by Pulse Oximetry 88 L Laboratory Results - last 24 hr 03/23/19 03/23/19 03/23/19 21:25 21:25 21:25 WBC 22.35 H RBC 4.10 L Hgb 11.6 L Hct 38.4 L MCV 93.7 MCH 28.3 MCHC 30.2 L RDW Std Deviation 16.0 H Plt Count 419 H MPV 9.4 Immature Gran % (Auto) 0.9 H Neut % (Auto) 90.2 H Lymph % (Auto) 3.5 L [place] % (Auto) 4.1 Eos % (Auto) 1.1 Baso % (Auto) 0.2 Immature Gran # (Auto) 0.21 H Neut # (Auto) 20.15 H Lymph # (Auto) 0.79 L [place] # (Auto) 0.92 H Eos # (Auto) 0.24 Baso # (Auto) 0.04 Segmented Neutrophils 96 H Band Neutrophils 1 Lymphocytes 2 L Metamyelocytes 1.0 PT 15.3 INR 1.20 PTT (Actin FS) 38.1 Sodium 138 Potassium 4.0 Chloride 99 Carbon Dioxide 26 Anion Gap 13 BUN 14 Creatinine 0.7 Estimated GFR/1.73 m2 > 60 BUN/Creatinine Ratio 20 Glucose 138 H Calculated Osmolality 278 Calcium 8.9 Magnesium 1.9 Total Bilirubin 0.19 L AST 98 H ALT 112 H Alkaline Phosphatase 82 Creatine Kinase 852 H Creatine Kinase Index 2.8 H CK-MB (CK-2) 23.60 H Troponin T Total Protein 5.8 L Albumin 2.8 L Globulin 3.0 Albumin/Globulin Ratio 0.9 Plasma Lactate 03/23/19 03/23/19 21:25 21:25 WBC RBC Hgb Hct MCV MCH MCHC RDW Std Deviation Plt Count MPV Immature Gran % (Auto) Neut % (Auto) Lymph % (Auto) [place] % (Auto) Eos % (Auto) Baso % (Auto) Immature Gran # (Auto) Neut # (Auto) Lymph # (Auto) [place] # (Auto) Eos # (Auto) Baso # (Auto) Segmented Neutrophils Band Neutrophils Lymphocytes Metamyelocytes PT INR PTT (Actin FS) Sodium Potassium Chloride Carbon Dioxide Anion Gap BUN Creatinine Estimated GFR/1.73 m2 BUN/Creatinine Ratio Glucose Calculated Osmolality Calcium Magnesium Total Bilirubin AST ALT Alkaline Phosphatase Creatine Kinase Creatine Kinase Index CK-MB (CK-2) Troponin T 0.452 H* Total Protein Albumin Globulin Albumin/Globulin Ratio Plasma Lactate 1.4 Orders Category Date Time Status Cardiac Monitoring DIRECTED Care 03/23/19 21:24 Active IV Insertion ORDERED Care 03/23/19 21:24 Active Notify MD of + Sepsis Screen NOW Care 03/23/19 21:24 Active CHEST-1 VIEW [RAD] Stat Exams 03/23/19 21:24 Completed BLOOD CULTURE [BLDCUL] Stat Lab 03/23/19 21:55 Results CBC WITH DIFF [HEME] Stat Lab 03/23/19 21:25 Completed CK PROFILE [SP CHEM] Stat Lab 03/23/19 21:25 Completed COMPREHENSIVE METABOLIC PANEL [CHEM] Stat Lab 03/23/19 21:25 Completed LACTATE, PLASMA [CHEM] Q3H Lab 03/23/19 21:25 Completed LACTATE, PLASMA [CHEM] Q3H Lab 03/24/19 00:30 Uncollected LACTATE, PLASMA [CHEM] Q3H Lab 03/24/19 03:30 Uncollected MAGNESIUM [CHEM] Stat Lab 03/23/19 21:25 Completed PROTIME WITH INR [COAG] Stat Lab 03/23/19 21:25 Completed PTT [COAG] Stat Lab 03/23/19 21:25 Completed TROPONIN T Stat Lab 03/23/19 21:25 Completed URINALYSIS W/POSS RFLX CULT [URINALYSIS] Stat Lab 03/23/19 21:24 Uncollected Oxygen Device Stat Oth 03/23/19 21:24 Active Result Diagrams: 03/25/19 04:45 03/25/19 04:45 - EKG 1 Time of EKG reading by physician:: 21:37 EKG Read and Signed by:: Frederick Ellis EKG Interpretation (*Must complete 3 of following elements*): Abnormal (poss LAE poss inferior infarct-age undetermined can not rule out anterior infarct, age undetermined) Rate: 111 Rhythm: sinus tach [place]: normal QRS: normal - XRAY 1 XRAY Study: Chest Impression: Abnormal ( EXAM: CHEST-1 VIEW INDICATION: sob TECHNIQUE: One view COMPARISON: None. FINDINGS: Inspiration is slightly suboptimal. There are vague interstitial and airspace infiltrates bilaterally. Consider pulmonary edema +/- pneumonia. There is more dense infiltrate at the right lung base. There may also be a component of right basilar atelectasis. There is no discrete pleural fluid collection or pneumothorax. The cardiac silhouette is unremarkable. IMPRESSION: Bilateral vague infiltrates seen throughout both lungs, most significant at the right lung base. Electronically signed by Kaushal Reno 03/23/2019 9:40 PM 03/23/192139 Interpreting Physician: Kaushal Reno MD Dictated Date/Time: 03/23/192136 cc: Frederick Ellis MD; Collin Enciso MD) Departure - Departure Date of Disposition Decision: 03/23/19 Time of Disposition Decision: 23:00 DIAGNOSIS: Troponin level elevated Pneumonia Qualifiers: Pneumonia type: due to unspecified organism Laterality: unspecified laterality Lung location: unspecified part of lung Qualified Code(s): J18.9 - Pneumonia, unspecified organism Disposition: ADMITTED INPATIENT 09 Certified Medical Emergency: Emergent Condition: Stable - Critical Care Note This patient required my direct & personal management of CC.: No Attestation - Physician/ IRENA Attestation Patient care was provided by Advanced Practice Provider:: No The physician spent face to face time with patient:: Yes Advanced Practice Provider documentation review:: Supervising physician onsite and consulted in the evaluation and care of this patient. The physician did have a face to face encounter with the patient. This chart was documented by the indicated scribe, (Lia Kohler, Salvatore) and accurately reflects the services I performed and decisions made by me, Frederick Ellis MD, as attested by the provider's signature.
== END 2019-03-29 15:09 | DRG 545 ==
LOC: ED 21:04 → SUATTDRO 03-24 01:33 → EDIPHOLD 03-24 01:33 → 2N 03-24 15:27
PROVIDERS: ATTEND Internal Medicine